=== PATIENT | male | born 1945 | race Caucasian/White ===

== ENCOUNTER 2018-10-06 08:03 | Day surgery (SDC) | payer MEDICAID, OTHER ==
[~2018-10-06 08:03] MED LIST: PROPOFOL INJ 200 MG/20 ML VIAL IV ONE
[2018-10-06 10:18] VITALS: BP 120/54
--- NOTE | 2018-10-06 11:25 | Operative Report ---
Operative Report DATE OF SURGERY: 10/06/18 Operative Report: The risks, benefits and alternatives of the procedure including the risk of bleeding, perforation requiring surgery have been explained to the patient in detail and informed consent has been obtained. The patient is taken back to the endoscopy suite and placed in a left, lateral decubital position. Timeout was called. Propofol medication is administered. Rectal examination is done which did not reveal any masses, tears or fissures. An Olympus videoscope was introduced into the patient's rectum. The scope was then carefully advanced all the way to the cecum. The cecum was identified by the usual anatomical landmarks including the ileocecal valve as well as the appendiceal office. Photodocumentation is obtained. The scope was then sequentially pulled back via the various segments of the colon including the ascending colon, hepatic flexure, transverse colon, splenic flexure, descending colon and finally into the rectosigmoid portions of the colon. Retroflexion maneuvers performed. PREOPERATIVE DIAGNOSIS: Colorectal cancer screening POSTOPERATIVE DIAGNOSIS: Sigmoid polyp that was removed via biopsy forceps. Internal hemorrhoids OPERATION: Colonoscopy with biopsy SURGEON: LIO HOBSON ANESTHESIA: LMAC TISSUE REMOVED OR ALTERED: As noted above. COMPLICATIONS: None. ESTIMATED BLOOD LOSS: None. INTRAOPERATIVE FINDINGS: As noted above. PROCEDURE: Patient tolerated the procedure well. No immediate postprocedure complications are noted. Patient is discharged in good condition. Discharge date 10/06/2018. Discharge diet: Regular. Discharge activity: Regular. 2 to 3-week follow-up to discuss findings. Wait on the pathology. 3 to 5-year surveillance colonoscopy. Patient is instructed to call the office or proceed to the emergency room should there be any further problems or questions.
== END 2018-10-06 10:05 | disposition home or self-care (01) ==
LOC: END 08:03
PROVIDERS: ATTEND Internal Medicine Gastroenterology
PROC: 0DBN8ZX Excision of Sigmoid Colon, Via Natural or Artificial Opening Endoscopic, Diagnostic (ICD-10-PCS; principal; 2018-10-06 10:00)
DX: Z12.11 Encounter for screening for malignant neoplasm of colon (principal); K63.5 Polyp of colon; K64.8 Other hemorrhoids
CPT/HCPCS: 45380; 88305 ×2; 00811; J2704; 811

== ENCOUNTER 2019-07-14 16:09 | Emergency (ER) | payer OTHER ==
[2019-07-14] MEDS ORDERED: ONDANSETRON HCL INJ/PF 4 MG/2 ML SDV IV ONE (16:36)
[2019-07-14] MEDS ORDERED: HYDROMORPHONE HCL INJ/PF 2 MG/ML AMPULE IV ONE ×2 (16:36→17:37)
--- NOTE | 2019-07-14 16:51 | ER Document Report ---
ED General - General Chief Complaint: Neck and Upper Back Pain Stated Complaint: NECK PAIN Time Seen by Provider: 07/14/19 16:11 Primary Care Provider: NIKI JOHNSON DO [Primary Care Provider] - Follow up as needed TRAVEL OUTSIDE OF THE [place] IN LAST 30 DAYS: No - HPI Notes: Patient is a 73-year-old male who underwent spinal decompression surgery and fusion of the cervical spine on July 10. He was discharged from the hospital, was doing well. He had a slight increase in pain in his neck that went into his shoulders. He states earlier today, while resting, he had a significant increase in his pain, sharp and stabbing, with electrical and shocking pains in the bilateral hands. He states he has significant weakness in his arms. He states he has been taking his medications as prescribed. He denies any new injuries. He said no fevers or chills, no nausea or vomiting. - Related Data Allergies/Adverse Reactions: epoxy resin Allergy (Severe, Verified 07/14/19 16:18) RASH latex Allergy (Severe, Verified 07/14/19 16:18) RASH Home Medications: Ascorbic acid 250 mg daily, atorvastatin 20 mg at bedtime, bupropion 200 mg twice a day, lisinopril 10 mg daily, Flomax 0.4 mg in the evening, Valium 2 mg 3 times daily as needed, oxycodone 5 mg every 6 hours as needed, sennosides 8.6 mg as needed Past Medical History - General Information source: Patient - Social History Smoking Status: Never Smoker Chew tobacco use (# tins/day): No Frequency of alcohol use: None Drug Abuse: Prescription drugs Family History: Reviewed & Not Pertinent Patient has suicidal ideation: No Patient has homicidal ideation: No - Past Medical History Cardiac Medical History: Reports: Hx Hypercholesterolemia, Hx Hypertension Denies: Hx Coronary Artery Disease, Hx Heart Attack Pulmonary Medical History: Reports: Hx Asthma Denies: Hx Bronchitis, Hx COPD, Hx Pneumonia Neurological Medical History: Denies: Hx Cerebrovascular Accident, Hx Seizures Musculoskeletal Medical History: Denies Hx Arthritis, Reports Hx Musculoskeletal Deformity - Immunizations Hx Diphtheria, Pertussis, Tetanus Vaccination: - UNSURE Hx Pneumococcal Vaccination: 04/18/16 Review of Systems - Review of Systems Musculoskeletal: See HPI Neurological/Psychological: See HPI Physical Exam - Vital signs Vitals: Temp Pulse Resp BP Pulse Ox 98.1 F 63 16 145/65 H 100 07/14/19 16:18 07/14/19 16:18 07/14/19 16:18 07/14/19 16:18 07/14/19 16:18 - Notes Notes: This is a 73-year-old male who appears his stated age in a mild to moderate distress secondary to pain. Head is normocephalic and atraumatic, pupils are equal round, reactive to light. Oral mucosa is moist. Patient has an [place] collar in place. This is removed while inline stabilization is maintained. Bandages noted to the posterior aspect of the neck, no surrounding erythema or induration. Bandages clean and dry. Heart is regular in rhythm, lungs are clear to station bilaterally. Abdomen soft, nontender, active bowel sounds. Patient is awake and alert. Patient has diminished strength in bilateral upper extremities, 3 out of 5 flexion of the arms at the shoulder, elbow. 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 Sensation is intact to light touch to all aspects of the upper extremity. Radial pulse 2+ bilaterally. Capillary refill is brisk. Course - Re-evaluation Re-evalutation: 07/14/19 18:45 Patient presents to the emergency department for evaluation. He is yelling out repeatedly and pain. He is medicated repeatedly with little in the way of relief. I spoke with Dr. Michelle Prabhakar, neurosurgery on-call at the [facility] in [place]. Initially she requested an MRI be performed. 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 I was able to order the MRI here. It is pending at this time. 07/14/19 21:23 MRI shows postoperative changes, as expected, no clear fluid collection or central canal stenosis. I shared images with neurosurgery from the [facility]. They state it is not unexpected for patient to have an increase in pain after cervical spine decompression. The patient has Valium at home and has not been taking it. He was medicated here with IV Dilaudid, Valium, fentanyl, morphine, and did eventually get some relief. I told him to take that on top of his pain medication, I will write him more Valium. [facility], return to the ED with worsening. - Vital Signs Vital signs: Temp Pulse Resp BP Pulse Ox 97.9 F 65 18 140/54 H 96 07/14/19 21:26 07/14/19 21:26 07/14/19 21:26 07/14/19 21:26 07/14/19 21:26 - Laboratory Result Diagrams: 07/14/19 16:25 07/14/19 16:25 Laboratory results interpreted by me: 07/14/19 07/14/19 16:25 16:25 RBC 3.84 L Hgb 11.2 L Hct 32.6 L Lymph % (Auto) 11.6 L Johnson % (Auto) 13.4 H Sodium 131.8 L - Diagnostic Test Radiology reviewed: Image reviewed, Reports reviewed Radiology results interpreted by me: 07/14/19 21:26 Cervical Spine MRI 07/14/19 18:02 IMPRESSION: 1. Postoperative changes, reportedly recent. There is limiting dorsal instrumentation artifact as above. 2. 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 Acuity indeterminate. No halie cord compression or high-grade central stenosis suggested allowing for the limitat ions noted above. 3. No significant spinal malalignment. No fracture or worrisome bone lesion detected. Discharge - Discharge Clinical Impression: Postoperative pain after spinal surgery Condition: Stable Disposition: HOME, SELF-CARE Instructions: Pain Management Additional Instructions: Your MRI here today failed to show any significant surgical emergencies. I spoke with the neurosurgery resident at the [facility], there is believe this is a normal postoperative course. Please take the Valium at home, as well as the pain medication, when needed. Follow-up as scheduled with the [facility]. Return to the emergency department for worsening or new concerning symptoms of any sort. Prescriptions: Diazepam [Valium 2 mg Tablet] 2 mg PO Q6HP PRN #15 tablet PRN Reason: Diazepam [Valium 2 mg Tablet] 2 mg PO Q6HP PRN #10 tablet PRN Reason: Referrals: NIKI JOHNSON, DO [Primary Care Provider] - Follow up as needed
[2019-07-14 16:55] LABS: ABSOLUTE EOSINOPHILS # (AUTO) 0.1 10^3/uL (0.0-0.6); ABSOLUTE MONOCYTES (AUTO) 1.2 10^3/uL (0.1-1.4); ABSOLUTE NEUT (AUTO) 6.5 10^3/uL (1.7-8.2); BASOPHILS % (AUTO) 0.4 % (0-2); EOSINOPHILS % (AUTO) 1.7 % (0-6); HEMATOCRIT 32.6 % (37.9-51.0); HEMOGLOBIN 11.2 g/dL (13.5-17.0); LYMPHOCYTES % (AUTO) 11.6 % (13-45); MEAN CORPUSCULAR HEMOGLOBIN 29.3 pg (27.0-33.4); MEAN CORPUSCULAR HGB CONC 34.4 g/dL (32.0-36.0); MEAN CORPUSCULAR VOLUME 85 fl (80-97); MONOCYTES % (AUTO) 13.4 % (3-13); PLATELET COUNT 170 10^3/uL (150-450); RED BLOOD COUNT 3.84 10^6/uL (4.35-5.55); RED CELL DISTRIBUTION WIDTH 13.7 % (11.5-14.0); SEGMENTED NEUTROPHILS % (AUTO) 72.9 % (42-78); TOTAL CELLS COUNTED % (AUTO) 100 %
[2019-07-14 16:56] LABS: ALBUMIN 3.9 g/dL (3.5-5.0); ALKALINE PHOSPHATASE 67 U/L (38-126); ANION GAP 8 (5-19); ASPARTATE AMINO TRANSFERASE 31 U/L (17-59); BILIRUBIN,DIRECT 0.2 mg/dL (0.0-0.4); BILIRUBIN,TOTAL 0.7 mg/dL (0.2-1.3); BLOOD UREA NITROGEN 14 mg/dL (7-20); CALCIUM 9.6 mg/dL (8.4-10.2); CARBON DIOXIDE 26 mmol/L (22-30); CHLORIDE 98 mmol/L (98-107); GLUCOSE 93 mg/dL (75-110); POTASSIUM 4.1 mmol/L (3.6-5.0); TOTAL PROTEIN 7.1 g/dL (6.3-8.2)
[2019-07-14] MEDS ORDERED: NORMAL SALINE 1000 ML 1,000 ML IV ONE (17:18)
[2019-07-14] MEDS ORDERED: DIAZEPAM INJ 10 MG/2 ML DISP.SYRIN IV ONE (18:04)
[2019-07-14] MEDS ORDERED: FENTANYL CITRATE INJ/PF 100 MCG/2 ML AMPUL IV ONE (18:44)
--- NOTE | 2019-07-14 19:48 | RADIOLOGY REPORT (SQ) ---
EXAM DESCRIPTION: MRI CERVICAL SPINE WITHOUT IMAGES COMPLETED DATE/TIME: 07/14/2019 7:35 pm REASON FOR STUDY: spinal decompression/fusion 07/11, numbness, pain COMPARISON: None. TECHNIQUE: Sagittal and Axial imaging includes T1, T2, STIR and gradient echo sequences. LIMITATIONS: Instrumentation artifact. This obscures. Combined with motion artifact, axial sequenc es are largely nondiagnostic. FINDINGS: ALIGNMENT: Relatively anatomic. VERTEBRAE: Intact. BONE MARROW: Normal. No marrow replacement or reactive changes. DISCS: Variable disc disease with signal and height loss. HARDWARE: Dorsal instrumentation spanning roughly C3 through C6, associated regional metallic artifac t. CORD AND BASE OF BRAIN: Inferior brain looks relatively normal. Mild signal within the substance of the cord at the C3-4 level. SOFT TISSUES: Dorsal decompression at C4, C5, C6. Deep dorsal fluid not clearly communicating with t he spinal canal. STENOSIS: Axial images are largely nondiagnostic, therefore assessment for stenosis is predominantly performed on sagittal imaging. There is good decompression at the operative sites. Mild persistent anterior disc osteophyte complexes at C4-5 and C5-6 and C6-7 but without suggestion of marked mass ef fect on the cord or high-grade central stenosis. Neural foramina are not evaluated due to artifact. UPPER THORACIC: Incompletely imaged. No significant spinal stenosis or exit foraminal stenosis. OTHER: No other significant finding. IMPRESSION: 1. Postoperative changes, reportedly recent. There is limiting dorsal instrumentation artifact as ab ove. 2. 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 Acuity indeterminate. No halie cord compression or high- grade central stenosis suggested allowing for the limitations noted above. 3. No significant spinal malalignment. No fracture or worrisome bone lesion detected. TECHNICAL DOCUMENTATION: JOB ID: [id number] [employer]- All Rights Reserved Reading location - IP/workstation name: [email or web address]
[2019-07-14] MEDS ORDERED: MORPHINE SULFATE 10 MG/ML INJ IV ONE (20:50)
[2019-07-14 21:30] VITALS: BP 140/54
== END 2019-07-14 22:05 | disposition home or self-care (01) ==
LOC: ER 16:09
DX: M54.6 Pain in thoracic spine (principal); M54.2 Cervicalgia; I10 Essential (primary) hypertension; E78.00 Pure hypercholesterolemia, unspecified; Z98.1 Arthrodesis status; Z91.040 Latex allergy status
CPT/HCPCS: 96376; 99284; 96361; 96374; 96375; 36415; 85025; 80053; 72141; J3360; J3010; J2270; J1170; J2405; J7030